=== PATIENT | male | born 1965 | race Caucasian/White ===

== ENCOUNTER → 2023-04-12 | Day surgery (SDC) | payer OTHER ==
[~2023-04-12] MED LIST: Lactated Ringers 1,000 ML IV SCH; Midazolam 1 MG/ML 2 ML SDV ONE; Propofol 200 MG/20 ML SDV ONE; fentaNYL 50 MCG/ML SDV ONE
== END ==
LOC: CC.SDS 07:29
PROVIDERS: ATTEND Family Medicine
DX: Z12.11 Encounter for screening for malignant neoplasm of colon (principal); K57.30 Diverticulosis of large intestine without perforation or abscess without bleeding; R03.0 Elevated blood-pressure reading, without diagnosis of hypertension
CPT/HCPCS: 00812; J2250; J2704; J3010; J7120